=== PATIENT | female | born 1995 | race Caucasian/White ===

== ENCOUNTER 2018-07-24 09:34 | Emergency (ER) | payer OTHER ==
[~2018-07-24] VITALS: Ht 162.6 cm; Wt 63.0 kg
[2018-07-24 09:37] VITALS: Ht 162.6 cm; Wt 63.0 kg
[2018-07-24 10:44] VITALS: BP 124/79
== END 2018-07-24 10:44 | disposition home or self-care (01) ==
LOC: ED 09:34
DX: J20.9 Acute bronchitis, unspecified (principal); Z71.6 Tobacco abuse counseling
CPT/HCPCS: 99406; J7613; J7644; Q0092